=== PATIENT | male | born 1940 | race Caucasian/White ===

== ENCOUNTER 2019-11-27 12:14 | Outpatient (CLI) | payer MEDICARE ==
--- NOTE | 2019-11-27 13:34 | CT ---
EXAM: CT Abdomen Pelvis with and without IV contrast PROVIDED CLINICAL HISTORY: Hematuria COMPARISON: None FINDINGS: The visualized lung bases are free of significant opacity. There is no evidence for urinary tract calculi or hydronephrosis. No evidence for solid renal mass. P arapelvic cysts are seen bilaterally. The delayed images demonstrate no evidence for filling defect involving the renal collecting systems, segmentally opacified ureters or urinary bladder. The prostat e gland is enlarged and demonstrates coarse internal calcifications. Simple appearing cyst is seen involving the left hepatic lobe. Tiny hypodensity right hepatic lobe ne ar the dome. A single calcification is noted involving right hepatic lobe laterally. The liver, spleen, pancreas and adrenal glands appear otherwise unremarkable. No bowel dilatation, inflammatory fat stranding, free fluid or lymph node enlargement apparent. Vascular calcifications are demonstrated. The osseous structures demonstrate no concerning lytic or blastic lesions. A bone island is noted inv olving T9. IMPRESSION: An etiology for the patient's hematuria is not evident on this examination.
== END 2019-11-27 12:15 | disposition home or self-care (01) ==
LOC: SCSCT 12:14
PROVIDERS: ATTEND Urology
DX: R31.0 Gross hematuria (principal)
CPT/HCPCS: 74177